=== PATIENT | male | born 1960 | race Caucasian/White ===

== ENCOUNTER 2017-01-24 05:35 | Observation (INO) | payer OTHER ==
[~2017-01-24] VITALS: Ht 188 cm; Wt 133.8 kg
[~2017-01-24 05:35] MED LIST: FENOFIBRATE160 MG PO; FLOMAX0.4 MG PO; OMEPRAZOLE20 MG PO
--- NOTE | 2017-01-24 09:33 | NUR ---
01/24/17 0991 Ann Mueller 0933 TO PACU, EASILY AWAKENED. CBI RUNNING, CLEAR IN TUBING. DENIES PAIN OR C/O. APNEA NOTED, SNORING.
--- NOTE | 2017-01-24 10:05 | NUR ---
Patient arrives to floor via bed from PACU with CBI running and clear urine to andujar bag. Patient alert and oriented, "Tom" at bedside. Patient and oriented to bed controls and call light. Placed bed alarm on as patient is droswy and high fall risk after epidural.
--- NOTE | 2017-01-24 10:32 | NUR ---
PATIENT GIVEN ICE WATER AND JELLO. INSTRUCTED PATIENT ON IS USE. PATIENT DEMONSTRATES FOR RN.
--- NOTE | 2017-01-24 11:25 | NUR ---
GONZALEZ DRAINING PALE PINK URINE. PATIENT DENIES PAIN, PATIENT CHILLY, GIVEN WARM BLANKET AND TURNED UP HEAT IN ROOM. PATIENT SLEEPY, CALL LIGHT IN REACH, BED ALARM ON.
--- NOTE | 2017-01-24 11:57 | NUR ---
PATIENT EATING LUNCH, DENIES NEEDS.
--- NOTE | 2017-01-24 13:30 | NUR ---
PATIENT LAUGHING AND TALKING WITH FAMILY. PATIENT HAS FULL SENSATION TO LEGS AND FEET. PATIENT DENIES PAIN. CBI RUNNING. GONZALEZ DRAINING CLEAR FLUID, NO CLOTS.
--- NOTE | 2017-01-24 14:10 | NUR ---
PT SITTING UP IN BED-ALERT, ORIENTED AND SUPPORTED BY HIS CARRILLO. SHE WAS RUBBING HIS FEET, SHE SEEMS VERY ATTENTIVE TO HIS NEEDS. HE HAS A PLEASANT DEMEANOR, SAID HE WAS FEELING OK. EXTENDED A BLESSING, WILL CONTINUE TO FOLLOW
--- NOTE | 2017-01-24 14:50 | NUR ---
CBI running. Urine clear. No clots. Call light in reach. Patient denies needs.
--- NOTE | 2017-01-24 16:00 | NUR ---
PATIENT REPOSITIONED IN BED. CALL LIGHT IN REACH. INFORMED PATIENT HE IS STRICT BED REST WHILE ON CBI.
--- NOTE | 2017-01-24 17:36 | NUR ---
PATIENT DENIES PAIN, GONZALEZ DRAINAGE CLEAR. CBI RATE SLOWED DOWN, URINE REMAINS CLEAR.
--- NOTE | 2017-01-24 18:22 | NUR ---
PATIENT DOING WELL AFTER TURP PROCEDURE. PATIENT HAS HAD NO PAIN OR BLADDER SPASMS. CBI HAS BEEN KEEPING URINE PALE PINK. PATIENT ON STRICT BEDREST. PATIENT IN GOOD SPIRITS, EXPECTED TO DC HOME IN AM.
--- NOTE | 2017-01-24 19:15 | NUR ---
pt in room, comfortable, denies c/o pain, itching or discomfort. F/c patent, draining pinkish colored urine, bladder irrigation solution infusing w/o problems. Pt able to turn self in bed. in room
--- NOTE | 2017-01-25 00:35 | NUR ---
medicated with 1 percocet c/o penile area pain, bladder irrigation ongoing, weaning off, drainage medium yellow, no penile dishcarge noted at this time
--- NOTE | 2017-01-25 02:19 | NUR ---
resting, awakens easily, no s/sx distress or itching, f/c draining clear dark yellow urine, bladder irrigation ongoing at a slower pace, no penile discharge or pressure noted at this time,
--- NOTE | 2017-01-25 06:14 | NUR ---
Pt has tolerated continuous bladder irrigation w/o problems. [address] way catherer patent. capped at 0600. Urina medium colored yellow urine. Was medicated x1 with percocet per pain, effective. Cont pulse ox in place. IVF infusing w/o problems. Pt tolerating fluids w/o problems. Scds in place. Currently awake watching tv. no requests, no resp distress
--- NOTE | 2017-01-25 06:29 | NUR ---
F/c dc'd, tip intact 8cc water withdrawn from f/c balloon. dark yellow urine present in cath bag. Attends applied, pt stated she is incontinent of urine at times.. Pt aware of posible bladder scanning and MD to be called if she is unable to urinate by 10-11am. and may need f/c reinserted if oks. Pt stated understanding. R hip fox wrap PICA dressing intact. good cms R hip. Pt cooperative with procedure. Procedure explained and pt stated understanding. currrently awake, watching tv, visiting with son. No c/o pain at this time
[2017-01-25] MEDS ORDERED: PERCOCET 5-3251 EACH PO (08:17)
[2017-01-25] MEDS ORDERED: LEVAQUIN500 MG PO (08:17)
--- NOTE | 2017-01-25 08:27 | NUR ---
PATIENT IN BED, EATING BREAKFAST. GOT PATIENT A FEW SUGAR PACKETS FOR COFFEE, IT'S VERY STRONG. WHITEBOARD UPDATED, ROOM TIDIED. PATIENT DOES NOT NEED ANYTHING ELSE AT THIS TIME.
--- NOTE | 2017-01-25 09:58 | NUR ---
Placed andujar to leg bag and instructed patient on how to empty. Patient tolerates well. Instructed patient on cath care and to watch for clots or bleeding. Patient demonstrates emptying catheter. All questions answered.
--- NOTE | 2017-01-28 11:49 | OR ---
[facility] [address], [place] [address] Signed DATE OF OPERATION: 01/24/2017 SURGEON: Akiko Kim MD PREOPERATIVE DIAGNOSES: 1. Benign prostatic hyperplasia with obstructive symptoms (lower urinary tract symptoms). 2. Incomplete bladder emptying. POSTOPERATIVE DIAGNOSES: 1. Benign prostatic hyperplasia with obstructive symptoms (lower urinary tract symptoms). 2. Incomplete bladder emptying. PROCEDURES: 1. Diagnostic cystoscopy. 2. Transurethral resection of the prostate. ANESTHESIA: Spinal. COMPLICATIONS: None. SPECIMENS: Prostate chips sent to pathology for evaluation. DRAINS: A 24-Cape Verdean 3-way Fragoso catheter, connected to continuous bladder irrigation. INDICATIONS FOR PROCEDURE: Mr. Zavala is a very pleasant 56-year-old gentleman, who presented to my clinic a couple of months ago with complaints of severe urinary frequency, urgency, as well as nocturia, and a weak force of stream. On further evaluation, he was found to have a PVR in the 150 mL range. Diagnostic cystoscopy revealed the presence of trilobar prostatic hyperplasia with significant lateral lobe hypertrophy. The patient was not interested in taking any oral medications for his lower urinary tract symptoms, instead wanted to pursue surgical intervention for definitive management of his symptoms. After discussion of the risks and benefits of transurethral resection of the prostate, the patient agreed to proceed. OPERATIVE FINDINGS: 1. On cystoscopy, there was no evidence of any suspicious masses, lesions or stones within the bladder. Bilateral ureteral orifices are normal in anatomic location. 2. The patient's prostatic urethra was resected in an organized manner. I began with the median lobe and then continue with the left lateral lobe and right lateral lobe of the prostate. The patient's prostate was resected down the level of the prostatic capsule on Electronically Signed By: AKIKO KIM MD 01/28/17 1149 PATIENT NAME: KATIUSKA ZAVALA OPERATIVE REPORT DATE OF : 56 PHYSICIAN: AKIKO KIM MD REPORT #: [id number] REPORT IS CONFIDENTIAL AND NOT TO BE RELEASED WITHOUT AUTHORIZATION [facility] [address], [place] [address] Signed both the right and left sides. 3. A 24-Cape Verdean 3-way Fragoso catheter was inserted into the patient's bladder and connected to continuous bladder irrigation. DESCRIPTION OF PROCEDURE: After informed consent was obtained, the patient was taken back to the operating room. [facility] operating table where a spinal anesthesia was placed. Once he was asleep, he was placed in the dorsal lithotomy position and his genitalia were prepped and draped in standard sterile fashion. The patient's urethra was dilated using Liam sounds from 18-Cape Verdean, all the way up to 30-Cape Verdean without difficulty. A 26-Cape Verdean resectoscope was then inserted through the patient's urethra into his bladder with the use of an obturator. Once the sheath was in place, the resectoscope was inserted and a diagnostic cystoscopy was performed. I was able to visualize both ureteral orifices throughout the entire procedure to avoid any iatrogenic injury to either orifice. I then began my resection in the median lobe using a bipolar looped device. Once the lobe resection was complete, I moved to the left lateral lobe of the prostate, which I was able to resect down to the level of the prostate capsule. I then resected the right lobe of the prostate and resected down to the level of the capsule and did penetrate the capsule slightly on the right side. I was able to coagulate the perforating vessel on that side without any difficulty. I dissected down to the level of verumontanum and avoided the external sphincter as per protocol. Once I was finished with my resection, he had a very nice clear channel from the level of the bladder neck all the way down to the verumontanum. I then used the bipolar button device to cauterize the entire area of resection. The resectoscope was removed and replaced with a Avani irrigation device. The prostate chips were irrigated from the bladder using the Avani irrigation device. All the prostate chips were successfully extracted. At this point in time, I inserted a Sensor wire through the resectoscope sheath into the patient's bladder and removed the sheath. Over the wire, I passed a 24-Cape Verdean 3-way Fragoso catheter into the patient's bladder and connected it to continuous bladder irrigation. Prior to connecting it to a CBI, I mainly flushed the Fragoso catheter until his urine was clear. The procedure was then terminated. The patient tolerated the procedure well without any complication. He will now be transferred to the postanesthesia care unit in stable condition. DISPOSITION: The patient will be transferred to the floor for observation for the next 24 hours or so. He will be maintained on continuous bladder irrigation. The nursing staff has been asked to wean, the CBI to keep the urine pink to clear in color. I discussed the details of today's procedure with his and answered all of her questions. He will be scheduled to return to Clinic this Tuesday the , to undergo a voiding trial. He will be sent home tomorrow with Percocet 5/325 #30 p.r.n. pain as well as Levaquin 500 mg p.o. daily Electronically Signed By: AKIKO KIM MD 01/28/17 1149 PATIENT NAME: KATIUSKA ZAVALA OPERATIVE REPORT DATE OF : 56 PHYSICIAN: AKIKO KIM MD REPORT #: [id number] REPORT IS CONFIDENTIAL AND NOT TO BE RELEASED WITHOUT AUTHORIZATION [address] [place], [place] [address] Signed for the next 10 days. I reiterated to the patient's today that the patient is not to perform any heavy physical activity including lifting for at least the next 6 weeks. MD ANDREA Carlos/NINFAL /[id number] cc: Jacob Drummond MD Electronically Signed By: AKIKO KIM MD 01/28/17 1149 PATIENT NAME: KATIUSKA ZAVALA OPERATIVE REPORT DATE OF : 56 PHYSICIAN: AKIKO KIM MD REPORT #: [id number] REPORT IS CONFIDENTIAL AND NOT TO BE RELEASED WITHOUT AUTHORIZATION
== END 2017-01-25 10:31 | disposition home or self-care (01) ==
LOC: DS 05:35 → MS 10:00
PROVIDERS: ADMIT Urology
PROC: 0VB08ZZ Excision of Prostate, Via Natural or Artificial Opening Endoscopic (ICD-10-PCS; principal; 2017-01-24 06:45)
DX: N40.1 Benign prostatic hyperplasia with lower urinary tract symptoms (principal); N13.8 Other obstructive and reflux uropathy; R35.0 Frequency of micturition; R39.14 Feeling of incomplete bladder emptying; R35.1 Nocturia; R39.15 Urgency of urination; R39.12 Poor urinary stream; K21.9 Gastro-esophageal reflux disease without esophagitis; E66.01 Morbid (severe) obesity due to excess calories; Z68.37 Body mass index [BMI] 37.0-37.9, adult; Z79.899 Other long term (current) drug therapy
CPT/HCPCS: 00914; 36415; 80048; 85025; G0378; J0696; J1100; J1885; J1956; J2250; J2405; J2704; J2765; J3010; J7030; J7120

== ENCOUNTER 2020-03-24 07:25 | Day surgery (SDC) | payer BC ==
[~2020-03-24] VITALS: Ht 188 cm; Wt 127.7 kg
[~2020-03-24 07:25] MED LIST changes: +AMIODARONE HCL200 MG PO; +DIGOXIN125 MCG PO; +ELIQUIS5 MG PO; +LEVAQUIN500 MG PO; +LIPITOR10 MG; +LIPITOR10 MG PO; +MAGNESIUM500 MG PO; -OMEPRAZOLE20 MG PO; +OMEPRAZOLE40 MG PO; +PERCOCET 5-3251 EACH PO; +SILDENAFIL20 MG PO; +TOPROL XL25 MG PO; +VITAMIN D-32000 UNIT PO
[2020-03-24] MEDS ORDERED: ENTRESTO 24 MG1 EACH PO (07:46)
--- NOTE | 2020-03-24 11:30 | NUR ---
03/24/20 1130 Tanya Parra 1059 PT ARRIVED IN PACU SLEEPY WITH NO C/O'S. 1115 OXYGEN REMOVED. SATS 97% ON RA. 1130 RESTING. REU.
--- NOTE | 2020-03-24 11:59 | NUR ---
1145 PT BACK TO ROOM FROM PACU AT BEDSIDE PT TAKING SIPS OF WATER TOLERATES WELL.
--- NOTE | 2020-03-24 13:11 | NUR ---
1245 PT COMPLAINS OF NEEDING TO URINATE BUT FEELS UNABLE TO. BLADDER SCAN DONE SHOWED 125ML ADVISED HIM THAT THE STENT MAY CAUSE THE SENSATION. HE REPORTS PAIN 8/10 DILAUDID GIVEN.
--- NOTE | 2020-03-24 13:30 | NUR ---
1330 PT COMPLAINS OF NAUSEA ZOFRAN GIVEN
--- NOTE | 2020-03-24 13:46 | NUR ---
PT ALERT, ORIENTED AND SUPPORTED BY HIS CARRILLO. PT SEEMS PREPARED, COULD SENSE SOME ANXIOUSNESS ON HIS PART. ALL QUESTIONS ASKED ANSWERED. PT REQUESTED PRAYER. WILL FOLLOW NEEDED
--- NOTE | 2020-03-24 13:56 | OR ---
[facility] [address] [place], [place] [address] Signed DATE OF OPERATION: 03/24/2020 SURGEON: Akiko Kim MD PREOPERATIVE DIAGNOSES: 1. Gross hematuria. 2. Filling defect in left renal pelvis, along with hyperdense cyst present in the left kidney. POSTOPERATIVE DIAGNOSES: 1. Gross hematuria. 2. Filling defect in left renal pelvis, along with hyperdense cyst present in the left kidney. 3. 2 mm to 3 mm calculus present in the bladder. NAMES OF PROCEDURES: 1. Left ureteral washings via open-ended ureteral catheter. 2. Cystoscopy with left retrograde pyelogram. 3. Diagnostic left nephroureteroscopy. 4. Insertion of a 6 x 28 cm double-J ureteral stent into the left collecting system. ANESTHESIA: General. ESTIMATED BLOOD LOSS: Minimal. COMPLICATIONS: None. SPECIMENS: 1. Left ureteral washing. 2. A 2-3 mm calculus present within the bladder, sent to lab for stone analysis. DRAINS: A 6 x 28 cm double-J ureteral stent inserted into the left ureter. INDICATIONS FOR PROCEDURE: Mr. Zavala is a very pleasant 59-year-old gentleman with a history of BPH with lower urinary tract symptoms. He was status post TURP approximately two years ago. In Electronically Signed By: AKIKO KIM MD 03/24/20 1356 PATIENT NAME: KATIUSKA ZAVALA OPERATIVE REPORT DATE OF : 56 REPORT #: [id number] PHYSICIAN: AKIKO KIM MD PCP: DOLLY EDMONDSON MD REPORT IS CONFIDENTIAL AND NOT TO BE RELEASED WITHOUT AUTHORIZATION [facility] [address] [place], [place] [address] Signed November or so, he contacted the clinic with complaints of sudden onset of painless gross hematuria. This hematuria lasted for a few days and then resolved on its own. He underwent a negative diagnostic cystoscopy at that time. He subsequently underwent a CT IVP, which revealed a suspicious filling defect within the left renal pelvis associated with a hyperdense cyst measuring approximately 6 cm in the lower pole of the left kidney. He was referred to , who reassured the patient that the mass within the left kidney was of benign in nature. The patient presents today to now undergo diagnostic left ureteroscopy with possible biopsy of the filling defect within the left renal pelvis. OPERATIVE FINDINGS: 1. On cystoscopy, there was no evidence of any suspicious masses or lesions in the bladder. Bilateral ureteral orifices are in their normal anatomic location and effluxing clear urine. Of note, there was a 2-3 mm stone present within the bladder that was extracted and placed in a specimen cup without difficulty. 2. A 10-Guyanese open-ended ureteral catheter was advanced into the left distal ureter and ureteral washings were obtained. 3. Left retrograde pyelogram was performed which revealed no evidence of any filling defects within the left renal pelvis or within the calices. The calices also appear normal with no evidence of any blunting or dilation. 4. A left diagnostic flexible nephroureteroscopy was performed which revealed absolutely no evidence of any suspicious masses or lesions within the left renal pelvis, calices or within the left ureter. Therefore, no biopsies were obtained as this was deemed unnecessary. 5. At the end of procedure, a 6 x 28 cm double-J ureteral stent was inserted in the left ureter under direct visualization without difficulty. DESCRIPTION OF PROCEDURE: After informed consent was obtained, the patient was taken back to the operating room. He was transferred from the [facility] to the operating room table, where general anesthesia was induced. He was placed in dorsal lithotomy position. His genitalia prepped and draped in a standard sterile fashion. Using a 30-degree lens on a 22.5-Guyanese introducer, rigid cystoscope was inserted through his urethra and into his bladder. Panendoscopic views of bladder were then obtained. Please see above findings. The small stone present within the bladder was extracted using the cystoscope. I then turned my attention to the left ureteral orifice where an open-ended catheter was advanced into the left ureter. A left ureteral washing was then obtained. I then inserted a 0.035 Sensor wire through the open-ended catheter into the left collecting system under fluoroscopic guidance. Once I confirmed that the wire was in the appropriate spot, I passed an 11/13 ureteral access sheath into the left collecting system under fluoroscopic guidance. A left retrograde pyelogram was then performed. Please see the above findings. I then advanced the left flexible ureteroscope through Electronically Signed By: AKIKO KIM MD 03/24/20 1356 PATIENT NAME: KATIUSKA ZAVALA OPERATIVE REPORT DATE OF : 56 REPORT #: [id number] PHYSICIAN: AKIKO KIM MD PCP: DOLLY EDMONDSON MD REPORT IS CONFIDENTIAL AND NOT TO BE RELEASED WITHOUT AUTHORIZATION [address] [address] Signed the sheath and into the left proximal ureter and left renal pelvis. A thorough diagnostic nephroureteroscopy was performed. Please see the above findings. Once I was satisfied, I did not see any evidence of anything suspicious within the left kidney or ureter, I withdrew the ureteroscope. I passed a 0.035 Sensor wire through the sheath and into the left renal pelvis. The sheath was then removed fully intact. Over the wire, a 6 x 28 cm double-J ureteral stent was passed into the patient's left collecting system under direct visualization without difficulty. The ureteral stent was left with a string attached. Once the wire was pulled, an adequate proximal coil was seen within the left renal pelvis. The patient's bladder was then drained using the cystoscope, which was then removed fully intact. The string of the ureteral stent was then secured to the patient's penis. The procedure was then terminated. The patient tolerated the procedure well without any complication. He will now be transferred to the postanesthesia care unit in stable condition. DISPOSITION: I discussed the details of today's procedure with the patient's and answered all of her questions. I reassured her that there is no abnormality located in the left collecting system with the patient. His indwelling ureteral stent can be removed using the string attached in three days, which would be March 27, 2020. He will be sent home with Cipro 500 mg p.o. b.i.d. for a total of 7 days, along with Percocet 5/325 dispense #20 as needed for pain. He was scheduled to return to clinic in 2-3 months to discuss the results of the stone analysis. MD ANDREA Carlos/ANNETTE /[id number] Copies: ~ Electronically Signed By: AKIKO KIM MD 03/24/20 1356 PATIENT NAME: LUCASKATIUSKADEBORAH LYNNE OPERATIVE REPORT DATE OF : 56 REPORT #: [id number] PHYSICIAN: AKIKO KIM MD PCP: DOLLY EDMONDSON MD REPORT IS CONFIDENTIAL AND NOT TO BE RELEASED WITHOUT AUTHORIZATION
--- NOTE | 2020-03-24 14:48 | NUR ---
1435 PT WAS ABLE TO VOID ABOUT 50ML OF BLOOD TINGED URINE, HE IS EATING JELLO AND PUDDING, TAKING SIPS OF WATER TOLERATES WELL.
--- NOTE | 2020-03-24 15:48 | NUR ---
1445 PT VOMITTED THE CRACKERS AND PUDDING HE ATE, ABOUT 60ML OF FLUID. [address] KIM REPORTED THAT PT COMPLAINS OF BLADDER SPAMS AT AN 8/10 PAIN. SHE ORDERED ANOTHER [facility]LL[facility] SUPPOSITORY. CALLED RUDY CASAREZ FOR ORDER FOR NAUSEA. GAVE PHENERGAN.
--- NOTE | 2020-03-24 16:34 | NUR ---
1635 PT VOMITTED AGAIN 12.5MG PHENERGAN GIVEN
--- NOTE | 2020-03-24 17:00 | NUR ---
PATIENT APPEARS SEDATED AFTER IV PHENERGAN PER MAR. PATIENT WILL WAKE AND SPEAK A FEW WORDS BEFORE DOZING OFF. CALL TO RUDY AMBROSIO CRNA WHO GAVE MORE ORDERS FOR NAUSEA MEDICATIONS. CALL TO DR. KIM WHO OKAYED INASPSINE AND COMPASINE IV. DR. KIM THEN ORDERED FOR PATIENT TO BE TRANSFERED TO MEDICAL/SURGICAL FLOOR FOR EXTENDED CARE.
--- NOTE | 2020-03-24 17:59 | NUR ---
2475 PT ABLE TO ASSIST IN MOVING OVER TO MED SURG BED. PT REPORTED HAVING PAIN AND THEN FELL BACK TO SLEEP SNORING. REPORT GIVEN TO LIANG CHAMPAGNE
--- NOTE | 2020-03-24 18:07 | NUR ---
PT TO MED-SURG FROM DAY SURGERY VERY DROWSY BUT AWAKENS TO VOICE. IS PRESENT WITH HIM. ORIENTED TO ROOM CALL LIGHT IN LAP. PT RETURNS TO SNORING SOFTLY. BED ALARM SET FOR SAFETY.
--- NOTE | 2020-03-24 18:39 | NUR ---
PT AWAKENS TO VOICE DENIES NEEDS OF, RETURNS TO RESTING SOUNDLY. SATS 98-100% BREATHING EVEN AND UNLABORED.
--- NOTE | 2020-03-24 19:30 | NUR ---
BEDIDE REPORT RECEIVED FROM MAHI ALFRED. pt SITTING UP IN BED AFTER UNMEASURED VOID IN RESTROOM. NO C/O NAUSEA. CALL LIGHT AND EMESIS BAG IN REACH.
--- NOTE | 2020-03-24 20:05 | NUR ---
pt ASSESSMENT COMPLETE. VSS. pt DENIES PAIN, DENIES NAUSEA. URINE STRAINED, NO STONES NOTED. PUDDING AND ICE WATER PROVIDED AND IN REACH. NO REQUESTS AT THIS TIME.
--- NOTE | 2020-03-24 21:48 | NUR ---
CALL LIGHT ANSWERED. PUDDING AND ICE WATER PROVIDED.
--- NOTE | 2020-03-24 22:15 | NUR ---
pt ASSESSMENT COMPLETE. pt DENIES NAUSEA, DENIES PAIN. IV SITE PAINFUL WITH SALINE FLUSH, LEFT ARM SKIN TAUT, EDEMATOUS. IV SITE D/C'D WNL. MAHI MAJANO IN ROOM TO START IV. CPOX IN PLACE TO MONITOR SPO2 OVERNIGHT. CALL LIGHT IN REACH.
--- NOTE | 2020-03-24 22:50 | NUR ---
NEW 22 G PIV STARTED IN RIGHT HAND BY THIS RN. GOOD BLOOD RETURN. pt RESTING IN BED WITH CALL LIGHT IN REACH. LIGHTS OFF IN ROOM. CPOX IN PLACE, pt ON RA. BED ALARM ON.
--- NOTE | 2020-03-25 00:52 | NUR ---
CHECKED ON PATIENT. RESTING IN BED WITH HOB ELEVATED. EYES CLOSED, BREATHING UNLABORED. LIGHTS OFF IN ROOM.
--- NOTE | 2020-03-25 01:10 | NUR ---
CALL LIGHT ANSWERED. SBA TO RESTROOM, GAIT UNSTEADY. pt DENIES DIZZINESS, STATES "I JUST FEEL WEAK". BLOOD/BROWN URINE NOTED, 200 MLS. pt RATES PAIN 10/10 WHILE VOIDING. BACK IN BED. CPOX ON. VSS. PUDDING AND CRACKERS PROVIDED. CALL LIGHT IN REACH.
--- NOTE | 2020-03-25 03:56 | NUR ---
CHECKED ON pt. RESTING IN BED WITH EYES CLOSED. SPO2 WNL ON RA. LIGHTS OFF IN ROOM.
--- NOTE | 2020-03-25 04:42 | NUR ---
PT UTILIZES CALL LIGHT, REQUESTS TO USE THE BATHROOM. PT UP TO BR AND BACK TO BED WITH 1 PA. PT LEANING OVER, GRUNTING HE WALKS. PT STATES THAT HE IS HAVING INCREASED PAIN, SPECIFICALLY REQUESTS PERCOCET. PT STATES THAT PAIN IS MOSTLY WHEN HE URINATES. URINE IS DARK RED, CRANBERRY/GRAPE JUICE COLORED. PT NOTIFIED A BIT TO EARLY FOR PAIN MED. PT STATES UNDERSTANDING. REQUESTS PUDDING. DENIES FURTHER NEEDS AT THIS TIME. CALL LIGHT IN REACH.
--- NOTE | 2020-03-25 05:09 | NUR ---
IN pt ROOM pt C/O PAIN WITH VOID. pt RESTING IN BED, DENIES PAIN AT THIS TIME. STATES "IT WAS AN 8 THIS LAST TIME". pt REQUESTING PAIN MEDICATION IN ONE HOUR. VSS. ASSESSMENT COMPLETE. CALL LIGHT IN REACH. NO ADDITIONAL REQUESTS.
--- NOTE | 2020-03-25 06:23 | NUR ---
pt RESTED WELL THIS SHIFT. NO C/O NAUSEA. PAIN WITH VOIDS. URINE BROWN/RED IN COLOR. VOIDING QS. WEAKNESS WITH AMBULATION, SBA. USES CALL LIGHT APPROPRIATELY. PRN PAIN MEDICATION X 2 THIS SHIFT. NEW IV RIGHT HAND.
--- NOTE | 2020-03-25 07:15 | NUR ---
BEDSIDE HANDOFF REPORT RECEIVED FROM CLAY MINE CUTTING MACHINE OPERATOR RN.
--- NOTE | 2020-03-25 07:30 | NUR ---
PT CALLED FOR ASSISTANCE INTO BATHROOM, SBA. PT REPORT OF BURNING WITH URINATION, RUST COLORED URINE. PT ON ROOM AIR, LUNG SOUNDS CLEAR, DENIES SOB. BOWEL TONES ACTIVE, DENIES NAUSEA, PT WILL CALL BREAKFAST ORDER DOWN. CMS INTACT, WITHOUT EDEMA. PT DENIES PAIN OTHER THAN THE BURNING FROM URINATION. PT DENIES OTHER NEEDS AT THIS TIME. EXPECTING TO DISCHARGE TODAY.
--- NOTE | 2020-03-25 07:40 | NUR ---
DR. KIM CALLED FOR UPDATE, DISCUSSED BLOOD IN URINE AND BURNING WITH URINAION, TELEPHONE ORDER TO START PYRIDIUM 200MG PO TID PRN FOR DYSURIA, RBOV.
--- NOTE | 2020-03-25 08:40 | NUR ---
PT ASSISTED TO CHAIR FROM BATHROOM, CONTINUES TO HAVE RUST COLORED URINE. PT GIVEN PYRIDIUM PER ORDER. DR. KIM TO BEDSIDE, DSICUSSED SURGERY AND PLAN FOR DISCHARGE TODAY.
[2020-03-25] MEDS ORDERED: PYRIDIUM200 MG PO (09:01)
--- NOTE | 2020-03-25 09:06 | NUR ---
RX FOR PYRIDIUM 200MG TABLETS PO TID PRN FOR DYSURIA QT. 20 TABLETS CALLED INTO [facility].
--- NOTE | 2020-03-25 09:48 | NUR ---
IV TAKEN OUT UPON RN REQUEST. CATH INTACT AND LOOKED GOOD, RN NOTIFIED. RN IN ROOM TO DO DC INSTRUCTIONS, IN ROOM. CALL LIGHT IN REACH. NO FURTHER NEEDS AT THIS TIME.
--- NOTE | 2020-03-25 09:57 | NUR ---
MED REC COMPLETE
--- NOTE | 2020-03-25 11:05 | NUR ---
PT ALERT, ORIENTED AND SITTING IN CHAIR. CARRILLO HERE TO TAKE PT HOME FOLLOWING DC. PT FEELS GOOD, SLEPT WELL BUT DIDN'T PLAN ON OVERNIGHT STAY. ALL QUESTIONS ASKED ANSWERED. GAVE BLESSING
== END 2020-03-25 10:00 | disposition home or self-care (01) ==
LOC: OPS 07:25 → DS 07:25 → OPS 08:45 → MS 17:45 → OPS 03-25 10:00
PROVIDERS: ATTEND Urology
PROC: 0TCB8ZZ Extirpation of Matter from Bladder, Via Natural or Artificial Opening Endoscopic (ICD-10-PCS; 2020-03-24)
PROC: 0T778DZ Dilation of Left Ureter with Intraluminal Device, Via Natural or Artificial Opening Endoscopic (ICD-10-PCS; principal; 2020-03-24 08:45)
DX: R31.0 Gross hematuria (principal); R93.429 Abnormal radiologic findings on diagnostic imaging of unspecified kidney; N28.1 Cyst of kidney, acquired; N21.0 Calculus in bladder; I48.91 Unspecified atrial fibrillation; N40.1 Benign prostatic hyperplasia with lower urinary tract symptoms; N13.8 Other obstructive and reflux uropathy; R33.8 Other retention of urine; R35.0 Frequency of micturition; K21.9 Gastro-esophageal reflux disease without esophagitis; G47.33 Obstructive sleep apnea (adult) (pediatric); E66.9 Obesity, unspecified; E78.00 Pure hypercholesterolemia, unspecified; I11.9 Hypertensive heart disease without heart failure; Z90.79 Acquired absence of other genital organ(s); Z79.01 Long term (current) use of anticoagulants; Z68.37 Body mass index [BMI] 37.0-37.9, adult; Z98.1 Arthrodesis status
CPT/HCPCS: 00918; 74420; 82365; C1769; C2617; J0461; J0690; J1100; J1170; J1885; J2250; J2405; J2550; J2704; J2765; J3010; J7121; Q9967